=== PATIENT | female | born 1980 | race Caucasian/White ===

== ENCOUNTER 2017-03-06 14:45 | Observation (INO) | payer MEDICAID, SELFPAY ==
[2017-03-06 14:55] VITALS: BMI 30.9
[2017-03-06 15:40] VITALS: BP 139/87; PULSE 80; RESP 20; TEMP 37.4; O2SAT 100
--- NOTE | 2017-03-06 15:47 | PCM.HP.STD ---
Problem List (1) Heroin addiction Status: Chronic Comment: snorts only (2) High dependence on smoking Status: Chronic (3) Chronic back pain Status: Chronic (4) History of endometriosis Status: Chronic History of Present Illness Date of Admission: 03/06/17 Chief Complaint: Requesting medical stabilization for withdrawal from heroin The patient is a 36 year old F with past medical history of heroin addiction ?4 years (prior to that prescription narcotic use of her aunt's prescribed drugs for CA), smoker, chronic back pain and endometriosis who presents to [facility] requesting medical stabilization for opioid withdrawal. Was admitted to [facility] in December and failed suboxone OP because her friend told her it is OK to use sometimes while you are on Suboxone. Had been on Suboxone in the past but her fiance could not stop using and so she used also. He is supposed to come in to the hospital for [facility]. She has 3 children and they are now living with her aunt. Her plan is to get Vivit[place] at [place] and do an OP program. She is c/o nausea but has had no vomiting. She has not had diarrhea but is diaphoretic. Last snorted heroin 03/05 at 9 PM. Has used cocaine in the past but since being addicted to heroin she does not crave cocaine. Past Medical History Past Medical History (Chronic Problems): Chronic Problems Chronic back pain (Chronic) Heroin addiction (Chronic) snorts only High dependence on smoking (Chronic) History of endometriosis (Chronic) Allergies acetaminophen [From Darvocet-N] Allergy (Verified 02/13/15 22:37) Itching propoxyphene napsylate [From Darvocet-N] Allergy (Verified 02/13/15 22:37) Itching tramadol HCl [From Ultram] Allergy (Verified 02/13/15 22:37) Itching morphine Adverse Reaction (Verified 02/13/15 22:37) Nausea/Vom/Diarrhea Home Medications: Ambulatory Orders Medication Instructions Recorded Hydrocodone Bitart/Apap 5-325 1 - 2 tablet PO Q4H PRN PRN #20 09/19/14 [[place] 5/325] tablet Surgical History: hysterectomy - with BL oophorectomy for endometriosis Psychiatric History: 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 hx 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 Lives: Spouse/ Significant Other - also has 3 children Smoking Status: Heavy Smoker (>10/day) - 1 PPD Tobacco Use: Cigarettes Alcohol: Rare Drugs: Heroin - *Family History Paternal History Items: - - never knew her father Maternal History Items: Diabetes, Heart Disease, Hypertension Review of Systems Constitutional: Reports: Anorexia, Chills Eyes: Denies: Blurred vision, Redness HEENT: Denies: Head Aches, Sinus Congestion, Sinus Drainage Cardiovascular: Denies: Chest Pain, Palpitations Respiratory: Denies: Cough, Shortness of breath at rest, Sputum production Gastrointestinal: Reports: Abdominal Pain - crampy, Nausea. Denies: Diarrhea, Vomiting Genitourinary: Denies: Dysuria Gynecological: Denies: Vaginal discharge Musculoskeletal: Denies: Joint swelling Skin: Denies: Jaundice, Rash, Wounds Psychiatric: Denies: Anxiety, Depression, Homicidal Ideations, Suicidal Ideations Endocrine: Denies: Hx of Thyroiditis Hematologic/ Lymphatic: Denies: Hx of blood clot VTE Information - Inpt Only VTE Present on Admission: No VTE Mechan Device Prophylaxis: None VTE Pharm Prophylaxis ordered?: No Reason prophylaxis not ordered:: Treatment Not Indicated - Physical Exam General: Alert, Oriented x3, Cooperative, - - she has a very foul odor of old cigarettes about her and the room reeks. she is sweaty HEENT: Atraumatic, PERRLA, EOMI, Normocephalic Oral: Moist Mucosa, - - she is edentulous Neck: Supple, No JVD, Negative Carotid Bruits Lungs: Clear to auscultation, Normal air movement Cardiovascular: Regular rate, No murmurs Abdomen: Bowel Sounds Present, Soft, Non-Distended, Tender, - - No guarding Extremities: No edema, Capillary Refill Less than 3 Seconds Skin: No rashes, No breakdown Neurological: Cranial nerves II-XII grossly intact Weight: 180 lb Body Mass Index (BMI) 30.9 Assessment/Plan Impressions 1. Acute opioid withdrawal-early. Requesting medical stabilization for detox. 2. Heroin addiction-denies any IV use ever and also denies any history of hepatitis C. Has used cocaine in the past. 3. Obesity 4. Heavy nicotine dependence 5. Prior failed episodes of outpatient drug rehab -fianc? is currently a heroin addict as well Admit for medical stabilization for opiod withdrawal. She plans on once again trying OP drug rehab and hopes this time to take Vivitrol
--- NOTE | 2017-03-06 16:00 | HP.PCM_ITS ---
Problem List (1) Heroin addiction Status: Chronic Comment: snorts only (2) High dependence on smoking Status: Chronic (3) Chronic back pain Status: Chronic (4) History of endometriosis Status: Chronic History of Present Illness Date of Admission: 03/06/17 Chief Complaint: Requesting medical stabilization for withdrawal from heroin The patient is a 36 year old F with past medical history of heroin addiction ?4 years (prior to that prescription narcotic use of her aunt's prescribed drugs for [place]), smoker, chronic back pain and endometriosis who presents to [facility] requesting medical stabilization for opioid withdrawal. Was admitted to [facility] in December and failed suboxone OP because her friend told her it is OK to use sometimes while you are on Suboxone. Had been on Suboxone in the past but her fiance could not stop using and so she used also. He is supposed to come in to the hospital for [facility]. She has 3 children and they are now living with her aunt. Her plan is to get [place] at [place] and do an OP program. She is c/o nausea but has had no vomiting. She has not had diarrhea but is diaphoretic. Last snorted heroin 03/05 at 9 PM. Has used cocaine in the past but since being addicted to heroin she does not crave cocaine. Past Medical History Past Medical History (Chronic Problems): Chronic Problems Chronic back pain (Chronic) Heroin addiction (Chronic) snorts only High dependence on smoking (Chronic) History of endometriosis (Chronic) Allergies acetaminophen [From Darvocet-N] Allergy (Verified 02/13/15 22:37) Itching propoxyphene napsylate [From Darvocet-N] Allergy (Verified 02/13/15 22:37) Itching tramadol HCl [From Ultram] Allergy (Verified 02/13/15 22:37) Itching morphine Adverse Reaction (Verified 02/13/15 22:37) Nausea/Vom/Diarrhea Home Medications: Ambulatory Orders Medication Instructions Recorded Hydrocodone Bitart/Apap 5-325 1 - 2 tablet PO Q4H PRN PRN #20 09/19/14 [[place] 5/325] tablet Surgical History: hysterectomy - with BL oophorectomy for endometriosis Psychiatric History: 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 hx 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 Lives: Spouse/ Significant Other - also has 3 children Smoking Status: Heavy Smoker (>10/day) - 1 PPD Tobacco Use: Cigarettes Alcohol: Rare Drugs: Heroin - *Family History Paternal History Items: - - never knew her father Maternal History Items: Diabetes, Heart Disease, Hypertension Review of Systems Constitutional: Reports: Anorexia, Chills Eyes: Denies: Blurred vision, Redness HEENT: Denies: Head Aches, Sinus Congestion, Sinus Drainage Cardiovascular: Denies: Chest Pain, Palpitations Respiratory: Denies: Cough, Shortness of breath at rest, Sputum production Gastrointestinal: Reports: Abdominal Pain - crampy, Nausea. Denies: Diarrhea, Vomiting Genitourinary: Denies: Dysuria Gynecological: Denies: Vaginal discharge Musculoskeletal: Denies: Joint swelling Skin: Denies: Jaundice, Rash, Wounds Psychiatric: Denies: Anxiety, Depression, Homicidal Ideations, Suicidal Ideations Endocrine: Denies: Hx of Thyroiditis Hematologic/ Lymphatic: Denies: Hx of blood clot VTE Information - Inpt Only VTE Present on Admission: No VTE Mechan Device Prophylaxis: None VTE Pharm Prophylaxis ordered?: No Reason prophylaxis not ordered:: Treatment Not Indicated - Physical Exam General: Alert, Oriented x3, Cooperative, - - she has a very foul odor of old cigarettes about her and the room reeks. she is sweaty HEENT: Atraumatic, PERRLA, EOMI, Normocephalic Oral: Moist Mucosa, - - she is edentulous Neck: Supple, No JVD, Negative Carotid Bruits Lungs: Clear to auscultation, Normal air movement Cardiovascular: Regular rate, No murmurs Abdomen: Bowel Sounds Present, Soft, Non-Distended, Tender, - - No guarding Extremities: No edema, Capillary Refill Less than 3 Seconds Skin: No rashes, No breakdown Neurological: Cranial nerves II-XII grossly intact Weight: 180 lb Body Mass Index (BMI) 30.9 Assessment/Plan Impressions 1. Acute opioid withdrawal-early. Requesting medical stabilization for detox. 2. Heroin addiction-denies any IV use ever and also denies any history of hepatitis C. Has used cocaine in the past. 3. Obesity 4. Heavy nicotine dependence 5. Prior failed episodes of outpatient drug rehab -fianc? is currently a heroin addict as well Admit for medical stabilization for opiod withdrawal. She plans on once again trying OP drug rehab and hopes this time to take Vivitrol
[2017-03-06 16:09] VITALS: PULSE 83; RESP 20; TEMP 37.4
[2017-03-06] MEDS: Acetaminophen 325 MG Tablet 650 MG PO (16:24)
[2017-03-06] MEDS: cloNIDine HCl 0.1 MG Tablet 0.2 MG PO (16:24)
[2017-03-06] MEDS: Dicyclomine 10 MG Capsule 20 MG PO ×2 (16:25→22:31)
[2017-03-06] MEDS: Ondansetron ODT 4 MG Tablet PO (16:25)
[2017-03-06] MEDS: Buprenorphine HCl 2 MG TAB.SUBL SL (16:26)
[2017-03-06 16:29] LABS: Absolute Lymphocyte Count 1.84 X10^3/ul (0.83-4.51); Basophil# 0.02 X10^3/uL; Basophil% 0.3 % (0-1); Eosinophils% 1.3 % (0-5); Hematocrit 42.9 % (37-47); Hemoglobin 14.3 g/dl (12.0-15.0); Lymphocyte # 1.84 X10^3/ul (4.0); Lymphocyte % 24.7 % (19-41); Mean Corp Hgb Conc 33.3 g/gl (32-36); Mean Corpuscular Hgb 31.3 pg (27.0-32.0); Mean Corpuscular Volume 93.9 fL (81-99); Mean Platelet Vol. 9.5 fl (6.2-12.0); Monocyte% 6.7 % (0-10); Neutrophil # 4.97 X10^3/uL (2.7-7.7); Neutrophil % 66.6 % (47-70); Platelet Count 213 K/mm3 (150-450); RBC Distribution Width CV 12.9 % (11.6-14.6); RBC Distribution Width SD 43.2 fl (35.1-43.9); Red Blood Count 4.57 M/mm3 (4.2-5.4); White Blood Count 7.5 K/mm3 (4.4-11.0)
[2017-03-06 16:32] LABS: POSITIVE COUNT NO; POSITIVE DIFFERENTIAL NO; POSITIVE MORPHOLOGY NO
[2017-03-06 16:36] LABS: International Normalized Ratio 0.9; Prothrombin Time (Protime)PT. 11.7 SECONDS (11.7-14.9)
[2017-03-06 16:43] LABS: Alcohol, Blood (Medical)-Serum < 3.0 mg/dL
[2017-03-06 16:48] LABS: ALB/GLOB Ratio 0.9 RATIO (0.9-2.4); AST(SGOT) 11 U/L (15-37); Alanine Aminotransfer ALT/SGPT 24 U/L (12-78); Albumin, Serum 3.6 g/dL (3.4-5.0); Alkaline Phosphatase 104 U/L (45-117); Anion Gap 5 (5-15); BUN 6 mg/dL (7-18); BUN/Creat Ratio 10.4 RATIO (10-20); Calcium,Total 9.2 mg/dL (8.5-10.1); Chloride 102 mmol/L (98-107); Creatinine, Serum 0.58 mg/dL (0.55-1.02); EST Glomerular Filtration Rate 126 mL/min (>60); Est Glom Filt Rate - Afr Amer 152 mL/min (>60); Estimated Creatinine Clearance 115.79 ml/min; Globulin 3.9 g/dL (2.3-3.5); Glucose 98 mg/dL (70-110); Protein, Total 7.5 g/dL (6.4-8.2); Sodium Level 139 mmol/L (136-145)
[2017-03-06 16:59] LABS: Pregnancy, Serum, hCG Quali. NEGATIVE Negative (0-9 Nonpreg)
[2017-03-06] MEDS: Mag Hydrox/Al Hydrox/Simeth 30 ML UDC PO (18:07)
--- NOTE | 2017-03-06 18:54 | NURSING ---
c/o nausea. mylanta not effective and pt had emesis which was seen by this nurse. Emesis in trash can. Pt states Nausea started shortly after dinner. Also reports anxiety is high. Visteril po given.
[2017-03-06 19:45] VITALS: BP 115/86; PULSE 84; RESP 20; TEMP 36.9; O2SAT 100
[2017-03-06] MEDS: Ondansetron ODT 4 MG Tablet 8 MG PO (20:11)
[2017-03-06] MEDS: Ibuprofen 400 MG Tablet 800 MG PO (20:14)
[2017-03-06 20:17] VITALS: BP 115/86; PULSE 84; RESP 20; TEMP 36.9
--- NOTE | 2017-03-06 20:27 | NURSING ---
Patient restless in bed complaining of nausea, abdominal cramping and back pain. Patient medicated with zofran and motrin for these symptoms.
[2017-03-06] MEDS: traZODone 50 MG Tablet PO (22:31)
--- NOTE | 2017-03-06 22:37 | NURSING ---
patient still complaining of abdominal discomfort, bentyl given for abdominal pain.
[2017-03-07] VITALS (10 sets, daily range): BP systolic 111–129; BP diastolic 60–85; PULSE 70–89; RESP 16–18; TEMP 36.4–37.2; O2SAT 94–97
[2017-03-07] MEDS: Buprenorphine HCl 2 MG TAB.SUBL SL ×3 (00:41→15:29)
[2017-03-07] MEDS: Ibuprofen 400 MG Tablet 800 MG PO ×3 (04:47→22:10)
[2017-03-07] MEDS: Dicyclomine 10 MG Capsule 20 MG PO ×3 (04:53→22:10)
--- NOTE | 2017-03-07 07:25 | PCM.PN.HOSP ---
Subjective: Patient is a 36-year-old female who was admitted to the hospital due to acute opiate withdrawal. Subjective. Patient was seen and examined. Laying down in bed, comfortable, does not appear to be distressed now, still complains of mild aches all over, and off cold/hot. Tolerating oral intake well. Does look slightly anxious. Denies shortness of breath, no palpitations. No GI/ complaints. Objective. General: Patient is laying down in bed. Awake, alert, oriented ?3. HEENT: Atraumatic, Normocephalic. Clear conjunctiva. Oral mucosa is moist. Neck: No nodules noted, no asymmetry. PERRLA. Skin: Clean, dry. No new visible rashes. Lungs: clear to auscultation bilaterally. CVS: S1-S2 present, no murmurs appreciated, regular rate, good radial pulses. Abdomen: Soft, nontender, nondistended, bowel sounds present. No CVA tenderness. Extremities: No clubbing, No cyanosis. No visible deformities. No lower extremity edema. Psych/Mental Status: Normal Affect, Appropriate Neuro: No new focal neurological findings. Assessment and plan. Acute opiate withdrawal. Continue withdrawal protocol with Buprenex taper. Polysubstance abuse. Using opiates, cocaine, nicotine. Counseled on cessation. Plans to continue rehab as outpatient, [facility] program will assist with outpatient arrangements. DVT prophylaxis-encourage ambulation and knee/ankle exercises. Dragon Dictation. Vitals/I&O's: Vital Signs Temp Pulse Resp BP Pulse Ox 37.0 C 84 18 121/85 95 03/07/17 04:45 03/07/17 04:45 03/07/17 04:45 03/07/17 04:45 03/07/17 04:45 Oxygen Delivery Method Room Air Weight: 81.647 kg Body Mass Index (BMI) 30.9 Intake and Output for Last 24 Hours 03/05/17 03/06/17 03/07/17 23:59 23:59 23:59 Intake Total 240 75 Output Total 100 25 Balance 140 50 Laboratory Results 03/06/17 16:05: WBC 7.5, RBC 4.57, Hgb 14.3, Hct 42.9, MCV 93.9, MCH 31.3, MCHC 33.3, RDW 12.9, RDW Differential 43.2, Plt Count 213, MPV 9.5, Immature Gran % (Auto) 0.400, Neut % (Auto) 66.6, Lymph % (Auto) 24.7, [place] % (Auto) 6.7, Eos % (Auto) 1.3, Baso % (Auto) 0.3, Absolute Neuts (auto) 5.0, Absolute Lymphs (auto) 1.84, Total Counted Not Reportable 03/06/17 16:05: PT 11.7, INR 0.9 03/06/17 16:05: Sodium 139, Potassium 4.0, Chloride 102, Carbon Dioxide 32.0, Anion Gap 5, BUN 6 L, Creatinine 0.58, Estim Creat Clear Calc 115.79, Est GFR (MDRD) Af Amer 152, Est GFR (MDRD) Non-Af 126, BUN/Creatinine Ratio 10.4, Glucose 98, Calcium 9.2, Total Bilirubin 0.20, AST 11 L, ALT 24, Alkaline Phosphatase 104, Total Protein 7.5, Albumin 3.6, Globulin 3.9 H, Albumin/Globulin Ratio 0.9 03/06/17 16:05: Ethyl Alcohol < 3.0 03/06/17 16:05: Serum , Qual NEGATIVE Current Medications Acetaminophen (Tylenol) 650 mg PO Q4H PRN PRN PRN Reason: Temp>99.1F Last Admin: 03/06/17 16:24 Dose: 650 mg Al Hydroxide/Mg Hydroxide (Mylanta Ii) 30 ml PO Q6H PRN PRN PRN Reason: dyspesia Last Admin: 03/06/17 18:07 Dose: 30 ml Bisacodyl (Dulcolax) 10 mg RECTAL DAILY PRN PRN Reason: Constipation Buprenorphine HCl (Buprenorphine Hcl) 4 mg SL Q8H [facility] PRN Reason: Taper Stop: 03/09/17 19:59 Last Admin: 03/07/17 00:41 Dose: 4 mg Clonidine (Catapres) 0.1 mg PO Q2H PRN PRN Reason: Hot/Cold Sweats or Anxiety Dicyclomine HCl (Bentyl) 20 mg PO Q6H PRN PRN PRN Reason: Abdomnial Discomfort Last Admin: 03/07/17 04:53 Dose: 20 mg Folic Acid (Folic Acid) 1 mg PO DAILY@0800 [facility] Hydroxyzine Pamoate (Vistaril) 50 mg PO Q6H PRN PRN PRN Reason: Mild Anxiety (score 1/3) Last Admin: 03/07/17 04:47 Dose: 50 mg Ibuprofen (Motrin) 800 mg PO Q8H PRN PRN PRN Reason: Mild-Moderate Pain (1-5/10) Last Admin: 03/07/17 04:47 Dose: 800 mg Loperamide HCl (Imodium) 2 - 4 mg PO UD PRN PRN Reason: LOOSE STOOLS Methocarbamol (Methocarbamol) 750 mg PO 4X/DAY PRN PRN Reason: Muscle Aches Multivitamins/Minerals (Multivitamin With Minerals) [facility] Nicotine (Nicoderm Cq (Pbkc)) 21 mg TRANSDERM. DAILY [facility] Last Admin: 03/06/17 18:08 Dose: 21 mg Ondansetron HCl (Zofran Odt) 8 mg PO Q6H PRN PRN PRN Reason: NAUSEA Last Admin: 03/06/17 20:11 Dose: 8 mg Quetiapine Fumarate (Seroquel) 25 mg PO Q6H PRN PRN PRN Reason: Moderate Anxiety (score 2/3) Senna (Senokot) 1 tablet PO QHS PRN PRN Reason: Constipation Sodium Chloride () 5 - 30 ml IV UD PRN PRN Reason: SALINE FLUSH Thiamine HCl (Vitamin B1) 100 mg PO DAILYCM [facility] Trazodone HCl (Desyrel) 50 mg PO QHS [facility] Last Admin: 03/06/17 22:31 Dose: 50 mg
[2017-03-07] MEDS: Folic Acid 1 MG Tablet PO (08:01)
[2017-03-07] MEDS: Multivitamins,Ther W-Minerals Tablet 1 TABLET PO (08:02)
[2017-03-07] MEDS: Thiamine Hydrochloride 100 MG Tablet PO (08:02)
[2017-03-07 12:30] LABS: Amphetamine Urine VISTA NEGATIVE (<1000 ng/mL); Barbiturate Urine VISTA NEGATIVE (< 200 ng/mL); Benzodiazepine Urine VISTA NEGATIVE (< 200 ng/mL); Cocaine Urine VISTA NEGATIVE (< 300 ng/mL); Ecstacy Urine VISTA NEGATIVE (< 500 ng/mL); Methadone Urine VISTA NEGATIVE (< 300 ng/mL); PCP Urine VISTA NEGATIVE (< 25 ng/mL); THC Urine VISTA NEGATIVE (< 50 ng/mL); Vista UDS pH Range 7
[2017-03-07] MEDS: QUEtiapine 25 MG Tablet PO ×2 (12:53→22:10)
[2017-03-07] MEDS: cloNIDine HCl 0.1 MG Tablet PO ×2 (12:54→15:34)
[2017-03-07] MEDS: Ondansetron ODT 4 MG Tablet 8 MG PO ×2 (12:54→22:10)
[2017-03-07] MEDS: traZODone 50 MG Tablet PO (22:05)
[2017-03-07] MEDS: Methocarbamol 750 MG Tablet PO (22:12)
[2017-03-08] MEDS: Buprenorphine HCl 2 MG TAB.SUBL SL ×3 (00:04→20:20)
[2017-03-08 00:06] VITALS: BP 120/79; PULSE 69; RESP 16; TEMP 36.3
[2017-03-08 06:26] VITALS: BP 113/84; PULSE 73; RESP 16; TEMP 36.1
[2017-03-08] MEDS: Methocarbamol 750 MG Tablet PO ×3 (06:33→20:19)
[2017-03-08] MEDS: Ibuprofen 400 MG Tablet 800 MG PO ×2 (06:33→15:56)
[2017-03-08] MEDS: QUEtiapine 25 MG Tablet PO ×3 (06:33→22:38)
--- NOTE | 2017-03-08 07:38 | PCM.PN.HOSP ---
Subjective: Patient is a 36-year-old female who was admitted to the hospital due to acute opiate withdrawal. Subjective. Patient was seen and examined. Laying down in bed, comfortable, does not appear to be distressed now, still complains of mild aches all over, chronic back pain, no fever chills now. Tolerating oral intake well, although states that appetite is decreased. Denies shortness of breath, no palpitations. No GI/ complaints. Objective. General: Patient is laying down in bed. Awake, alert, oriented ?3. HEENT: Atraumatic, Normocephalic. Clear conjunctiva. Oral mucosa is moist. Neck: No nodules noted, no asymmetry. PERRLA. Skin: Clean, dry. No new visible rashes. Lungs: clear to auscultation bilaterally. CVS: S1-S2 present, no murmurs appreciated, regular rate, good radial pulses. Abdomen: Soft, nontender, nondistended, bowel sounds present. No CVA tenderness. Extremities: No clubbing, No cyanosis. No visible deformities. No lower extremity edema. Psych/Mental Status: Normal Affect, Appropriate Neuro: No new focal neurological findings. Assessment and plan. Acute opiate withdrawal. Continue withdrawal protocol with Buprenex taper. Polysubstance abuse. Using opiates, cocaine, nicotine. Counseled on cessation. Plans to continue rehab as outpatient, [facility] program will assist with outpatient arrangements. DVT prophylaxis-encourage ambulation and knee/ankle exercises. Dragon Dictation. Vitals/I&O's: Vital Signs Temp Pulse Resp BP Pulse Ox 36.1 C 73 16 113/84 97 03/08/17 06:26 03/08/17 06:26 03/08/17 06:26 03/08/17 06:26 03/07/17 22:02 Oxygen Delivery Method Room Air Weight: 81.647 kg Body Mass Index (BMI) 30.9 Intake and Output for Last 24 Hours 03/06/17 03/07/17 03/08/17 23:59 23:59 23:59 Intake Total 240 575 880 Output Total 100 25 Balance 140 550 880 Laboratory Results 03/06/17 12:15: Urine Opiates Screen NEGATIVE, Urine Methadone Screen NEGATIVE, Ur Barbiturates Screen NEGATIVE, Ur Phencyclidine Scrn NEGATIVE, Ur Amphetamines Screen NEGATIVE, U Methamphetamin-MDMA NEGATIVE, U Benzodiazepines Scrn NEGATIVE, Urine Cocaine Screen NEGATIVE, U Cannabinoids Screen NEGATIVE, Ur Drug Screen Comment Current Medications Acetaminophen (Tylenol) 650 mg PO Q4H PRN PRN PRN Reason: Temp>99.1F Last Admin: 03/06/17 16:24 Dose: 650 mg Al Hydroxide/Mg Hydroxide (Mylanta Ii) 30 ml PO Q6H PRN PRN PRN Reason: dyspesia Last Admin: 03/06/17 18:07 Dose: 30 ml Bisacodyl (Dulcolax) 10 mg RECTAL DAILY PRN PRN Reason: Constipation Buprenorphine HCl (Buprenorphine Hcl) 2 mg SL Q8H [facility] PRN Reason: Taper Stop: 03/09/17 19:59 Last Admin: 03/08/17 00:04 Dose: 2 mg Clonidine (Catapres) 0.1 mg PO Q2H PRN PRN Reason: Hot/Cold Sweats or Anxiety Last Admin: 03/07/17 15:34 Dose: 0.1 mg Dicyclomine HCl (Bentyl) 20 mg PO Q6H PRN PRN PRN Reason: Abdomnial Discomfort Last Admin: 03/07/17 22:10 Dose: 20 mg Folic Acid (Folic Acid) 1 mg PO DAILY@0800 [facility] Last Admin: 03/07/17 08:01 Dose: 1 mg Hydroxyzine Pamoate (Vistaril) 50 mg PO Q6H PRN PRN PRN Reason: Mild Anxiety (score 1/3) Last Admin: 03/08/17 00:09 Dose: 50 mg Ibuprofen (Motrin) 800 mg PO Q8H PRN PRN PRN Reason: Mild-Moderate Pain (1-5/10) Last Admin: 03/08/17 06:33 Dose: 800 mg Loperamide HCl (Imodium) 2 - 4 mg PO UD PRN PRN Reason: LOOSE STOOLS Methocarbamol (Methocarbamol) 750 mg PO 4X/DAY PRN PRN Reason: Muscle Aches Last Admin: 03/08/17 06:33 Dose: 750 mg Multivitamins/Minerals ([facility]amin [facility] Minerals) [facility] Last Admin: 03/07/17 08:02 Dose: 1 tablet Nicotine (Nicoderm Cq (Pbkc)) 21 mg TRANSDERM. DAILY [facility] Last Admin: 03/07/17 08:01 Dose: 21 mg Ondansetron HCl (Zofran Odt) 8 mg PO Q6H PRN PRN PRN Reason: NAUSEA Last Admin: 03/07/17 22:10 Dose: 8 mg Quetiapine Fumarate (Seroquel) 25 mg PO Q6H PRN PRN PRN Reason: Moderate Anxiety (score 2/3) Last Admin: 03/08/17 06:33 Dose: 25 mg Senna (Senokot) 1 tablet PO QHS PRN PRN Reason: Constipation Sodium Chloride () 5 - 30 ml IV UD PRN PRN Reason: SALINE FLUSH Thiamine HCl (Vitamin B1) 100 mg PO DAILYCM [facility] Last Admin: 03/07/17 08:02 Dose: 100 mg Trazodone HCl (Desyrel) 50 mg PO QHS [facility] Last Admin: 03/07/17 22:05 Dose: 50 mg
[2017-03-08] MEDS: Multivitamins,Ther W-Minerals Tablet 1 TABLET PO (08:10)
[2017-03-08] MEDS: Thiamine Hydrochloride 100 MG Tablet PO (08:10)
[2017-03-08] MEDS: Folic Acid 1 MG Tablet PO (08:10)
[2017-03-08 08:17] VITALS: BP 128/77; PULSE 75; RESP 20; TEMP 36.4; O2SAT 95
--- NOTE | 2017-03-08 10:55 | NURSING ---
Pt. room smelled of stale smoke at beginning of shift and shortly after- this RN entered room and room smelled as if someone had recently smoked in room. This RN noticed pt's book bag next to bed- pt reminded no smoking in hospital. Griselda Rodgers notified of same.
--- NOTE | 2017-03-08 12:02 | NURSING ---
pt called this RN on work cell phone and c/o anxiety and muscle aches- requesting anxiety med and pain med. Upon entering room pt restless and sitting up in bed- slightly shaking. Pt c/o muscle aches 8/10 pain. PRN meds (vistaril and methocarbamol) given at this time.
[2017-03-08 13:30] VITALS: BP 128/78; PULSE 90; RESP 18; TEMP 36.6
--- NOTE | 2017-03-08 14:44 | CHAPLAIN ---
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; pt discloses that she really wants to make a change in life and is tired of getting up in the morning and thinking about how she can get money to get drugs; pt said that she has some support but 'not really'; pt states that her boyfriend is coming through [facility] tomorrow and she is hopeful that they can both get clean together; pt said she does not think about God and said I've lost a lot of people in my life; patient however was welcoming of a prayer; pt was encouraged by this chief hydroelectric station operator to continue on pursuit of sobriety and to consider what future might look that; pt said that she does not even know who she is and has some anxiety about continuing forward; we talked about changes and finding hope for a good new life
--- NOTE | 2017-03-08 15:11 | NURSING ---
This RN entered patient's room for 1400 rounds/ vitals. Room smells strongly of smoke- this RN notified patient that smoke can be smelled strongly in patient's room. Patient states that It isn't me- I don't even have any cigarettes here. This RN reminded patient again that if she would get caught smoking in room- she would be d/c'ed.
[2017-03-08 18:00] VITALS: BP 125/72; PULSE 88; RESP 18; TEMP 36.6
--- NOTE | 2017-03-08 18:20 | NURSING ---
pt c/o back pain 04/13 at 1556- prn motrin given. Pt exhibited facial grimacing. AT this time pt c/o anxiety- requesting meds. Pt sitting up in bed- restless- prn vistaril given.
[2017-03-08 20:08] VITALS: BP 132/82; PULSE 79; RESP 14; TEMP 36.9
[2017-03-08] MEDS: cloNIDine HCl 0.1 MG Tablet PO (20:19)
[2017-03-08] MEDS: traZODone 50 MG Tablet PO (22:38)
[2017-03-09 05:02] VITALS: BP 109/74; PULSE 76; RESP 16; TEMP 36.7
[2017-03-09] MEDS: Methocarbamol 750 MG Tablet PO (05:07)
[2017-03-09] MEDS: Ibuprofen 400 MG Tablet 800 MG PO (05:08)
[2017-03-09] MEDS: Buprenorphine HCl 2 MG TAB.SUBL SL (08:00)
[2017-03-09] MEDS: Folic Acid 1 MG Tablet PO (08:01)
[2017-03-09] MEDS: Thiamine Hydrochloride 100 MG Tablet PO (08:01)
[2017-03-09] MEDS: Multivitamins,Ther W-Minerals Tablet 1 TABLET PO (08:01)
[2017-03-09 08:18] VITALS: BP 125/79; PULSE 88; RESP 20; TEMP 36.7
--- NOTE | 2017-03-09 10:13 | NURSING ---
PT LEAVING WITH SO THEY CAN GO TO ANOTHER APPT NECESSARY FOR REHAB-DR QUISPE NOT ON UNIT YET AND PT HAS BEEN TOLD BY [facility] THAT SHE IS DONE WITH HER HOSPITAL STAY-THIS NURSE TOLD HER WE CAN NOT HOLD HER AGAINST HER WILL-SHE SAID WE HAVE ACCURATE PHONE # FOR HER IF THERE ARE FURTHER INSTRUCTIONS FOR HER-DR QUISPE MADE AWARE
--- NOTE | 2017-03-09 10:16 | PCM.DC ---
You will use the following diet at home:: No restrictions Your food should be the consistency of: Regular Discharge Activity: Return to Normal Activity, May Not Drive Call your doctor if you observe: Fever of 101 or Higher, Coldness, Increased Pain, Numbness or Tingling, Change in Color, Inability to urinate, Inability to have a bowel movement, Using more than one pad per hour, Shortness of breath, Dizziness, Fainting spells, Swelling in the ankles, Chest pain, Prolonged hiccoughing, Increased palpitations (irregular heartbeat), Calf discomfort, Uncontrolled pain Allergies/Adverse Reactions: Allergies acetaminophen [From Darvocet-N] Allergy (Verified 03/06/17 15:48) Itching propoxyphene napsylate [From Darvocet-N] Allergy (Verified 03/06/17 15:48) Itching tramadol HCl [From Ultram] Allergy (Verified 03/06/17 15:48) Itching morphine Adverse Reaction (Verified 03/06/17 15:48) Nausea/Vom/Diarrhea Primary Care Physician: Care Physician,No Primary [Primary Care Provider] - Please follow up with your Primary Care Physician in: 2 weeks Please Follow Up With: drug rehab When: [facility] upon discharge from the hospital
--- NOTE | 2017-03-09 10:17 | DS.PCM_ITS ---
Discharge Date and Diagnosis Date of Admission: 03/06/17 Date of Discharge: 03/09/17 - Primary Discharge Diagnosis Acute opiate withdrawal Polysubstance abuse - Secondary Discharge Diagnosis Chronic Problems Chronic back pain (Chronic) Heroin addiction (Chronic) snorts only High dependence on smoking (Chronic) History of endometriosis (Chronic) Hospital Course and Treatment Summary of Care Provided: Patient is a 36-year-old female who was admitted to the hospital due to acute opiate withdrawal. Hospital course: * Acute opiate withdrawal. Continue withdrawal protocol with Buprenex taper. * Polysubstance abuse. Using opiates, cocaine, nicotine. Counseled on cessation. Plans to continue rehab as outpatient, [facility] will assist with outpatient arrangements. * DVT prophylaxis-encourage ambulation and knee/ankle exercises. I did came to evaluate patient around 10 AM, although patient was already gone. Per report from RN she had scheduled appointment for 1015 in a.m. (!), That was scheduled by [facility], and she did not want to miss this appointment and left prior was able to evaluate patient. Per report from RN she symptoms of acute opiate withdrawal resolved. Discharge Activity: Return to Normal Activity, May Not Drive Call your doctor if you observe: Fever of 101 or Higher, Coldness, Increased Pain, Numbness or Tingling, Change in Color, Inability to urinate, Inability to have a bowel movement, Using more than one pad per hour, Shortness of breath, Dizziness, Fainting spells, Swelling in the ankles, Chest pain, Prolonged hiccoughing, Increased palpitations (irregular heartbeat), Calf discomfort, Uncontrolled pain Primary Care Physician: Care Physician,No Primary [Primary Care Provider] - Please follow up with your Primary Care Physician in: 2 weeks Please Follow Up With: drug rehab When: [facility] upon discharge from the hospital Disposition: Home Minutes spent on discharge:: 20 Patient Condition:: Good Meaningful Use Info Meaningful Use Diagnoses (Choose all that apply): None applicable
== END 2017-03-09 10:11 | disposition home or self-care (01) | DRG 773 ==
LOC: MS3 05-28 15:40
PROVIDERS: Admitting Provider Internal Medicine; Visit Provider Internal Medicine
DX: F11.23 Opioid dependence with withdrawal (principal); F17.210 Nicotine dependence, cigarettes, uncomplicated; M54.9 Dorsalgia, unspecified; G89.29 Other chronic pain; E66.9 Obesity, unspecified; Z68.30 Body mass index [BMI] 30.0-30.9, adult; F14.10 Cocaine abuse, uncomplicated; Z90.710 Acquired absence of both cervix and uterus; Z90.722 Acquired absence of ovaries, bilateral; Z87.42 Personal history of other diseases of the female genital tract
CPT/HCPCS: 80053; 80307; 80320; 84703; 85025; 85610; 99218; G0378; G0379; G0480

== ENCOUNTER 2020-02-12 08:34 | Emergency (ER) | payer SELFPAY ==
[2020-02-12 08:35] VITALS: BP 143/93; PULSE 113; RESP 18; TEMP 36.4; O2SAT 97; BMI 34.3
--- NOTE | 2020-02-12 09:07 | ED.VIS.GI ---
History of Present Illness Chief Complaint: Abd Pain Informant: Patient - Abdominal Pain/Flank Pain Onset: Month(s) - multiple Context: Sudden Onset - when occurs Timing: Intermittent, Lasts - from hrs to several days Quality: Cramping Location: Diffuse - either periumbilical or lower abd pain, nonlateralizing Current Severity: Moderate Maximum Severity: Severe Worsened by: Food - within 30 min of eating most things Relieved by: Nothing - hasn't tried anything - Nausea/Vomiting/Emesis GI Symptom: Negative for: Nausea, Vomiting - Diarrhea/Melena/Hematochezia GI Symptom: Diarrhea - chronic; when has BM, is loose. often goes 2-4 days between BMs for years.. Negative for: Melena, Hematochezia Stool Quality: Loose. Negative for: Watery, Mucous, Black, Maroon, SERINA per rectum Associated Symptoms: Negative for: Dysuria, Frequency, Hematuria, Urgency Narrative: This patient states she does not have a doctor or insurance and presents for this abdominal pain for which she has not seen a physician yet. It has been present for months, episodically. She had an episode yesterday and someone told her to go to the ER. She states the discomfort continues into today, but not as bad as it was yesterday. She states yesterday they were making sloppy Alejandro's, she had a bun with barely any of the sauce on it, and within 15 minutes she was having significant periumbilical abdominal pain. She has never had any testing for this. She had a hysterectomy in the past but no other abdominal surgeries. No radiation into her back or chest. No mucus, blood, melena. - Past Medical History (1) Chronic back pain Status: Chronic (2) Heroin addiction Status: Chronic Comment: snorts only (3) High dependence on smoking Status: Chronic (4) History of endometriosis Status: Resolved Past Medical History - Allergies and Home Meds Allergies/Adverse Reactions: Allergies acetaminophen [From Darvocet-N] Allergy (Verified 02/12/20 08:35) Itching propoxyphene napsylate [From Darvocet-N] Allergy (Verified 02/12/20 08:35) Itching tramadol HCl [From Ultram] Allergy (Verified 02/12/20 08:35) Itching morphine Adverse Reaction (Verified 02/12/20 08:35) Nausea/Vom/Diarrhea Primary Care Physician: Care Physician,No Primary [Primary Care Provider] - Surgical History: hysterectomy - with BL oophorectomy for endometriosis Smoking Status: Heavy Smoker (>10/day) - Family History Paternal Family History: Reports: - - never knew her father Maternal Family History: Reports: Diabetes, Heart Disease, Hypertension Review of Systems General: Denies: Chills, Fever, Sweats Eyes: Denies: Visual changes - bilaterally, Diplopia ENT: Denies: Rhinorrhea, Sore throat Cardiovascular: Denies: Chest pain, Palpitations Respiratory: Denies: Dyspnea, Cough, Dyspnea on exertion Gastrointestinal: Reports: Abdominal pain, Diarrhea, Constipation - According the patient, when she does not have a bowel movement for 5 days. Denies: Nausea, Vomiting, Melena, Hematochezia Genitourinary: Denies: Dysuria, Hematuria, Frequency Musculoskeletal: Denies: Neck pain, Swelling, Extremity Pain Skin: Denies: Rash, Wounds Neurological: Denies: Headache, Weakness, Numbness Physical Exam Vital Signs/Narrative: Vital Signs Temp Pulse Resp BP Pulse Ox 02/12/20 08:35 97.5 F L 113 H 18 143/93 H 97 Inital Vital Signs reviewed: Yes General: Well nourished, Well developed, No Acute Distress Head: Normocephalic, Atraumatic Eyes: Perrl, EOMI ENT: Moist mucous membranes, No rhinorrhea Neck: Supple, Nontender Cardiovascular: Regular rate, Regular rhythm, No murmurs Respiratory: No distress, CTA bilaterally, Chest nontender Abdomen: Soft, Nondistended, Normal bowel sounds, Tender - Infraumbilical only. No other areas of abdominal tenderness.. Negative for: Guarding, Rebound tenderness, Pulsatile mass, Balderrama's sign Back: Nontender, Normal Inspection. Negative for: CVA tenderness Extremities: Nontender, No edema Skin: Normal color, No rash, No Trauma Neurological: Alert, Oriented x3, Cranial nerves II-XII grossly intact, Normal Strength, Normal Sensation, Normal Gait Psychological: Normal affect, Normal Mood Diagnostic/Tx/Re-eval - Medical Decision Making Patient states something is wrong here. As I discussed with the patient, I do not disagree. However, I advised her that I do not feel that there is anything life-threatening, which she is also in agreement with. Since she does not have insurance, since testing in the ER is less likely to give her a diagnosis for this, she prefers not to have any testing. I do not think that is unreasonable at this time, and in context I have discussed with her the possibility that CT could give clues but would unlikely give an answer. I do not think she has diverticulitis or appendicitis. Her tenderness, pain, symptoms are inconsistent with biliary colic. Differential includes peptic ulcer disease, celiac disease, inflammatory bowel diseases, irritable bowel syndrome, and other food intolerances. We discussed all this, including the fact that the next best test to giving her an answer would be scopes. She needs to follow-up with a primary care doctor first, however and then she may be referred from there if needed. At this time I think it is reasonable to give her either H2 roula or PPI, Bentyl, and a GI cocktail, and she will be given prescriptions. She asked for a work note as well. ED Disposition - Plan for ED Patient: Disposition: Home or Assisted Living Diagnosis: Intermittent abdominal pain Instructions: ED PEPTIC ULCER vs GASTRITIS, Celiac Disease, Gluten-Free Diet for Celiac Disease Prescriptions: Dicyclomine HCl [Bentyl] 20 mg PO . Q4-6H PRN #20 cap PRN Reason: abdominal pain Transmission Status: Pending to [facility] #[id number] Omeprazole 1 cap PO DAILY 30 Days #30 capsule.dr Transmission Status: Pending to [facility] #[id number] Referrals: Antwon Roman MD [STAFF PHYSICIAN] - (call for appt)
[2020-02-12] MEDS: Dicyclomine 10 MG Capsule 20 MG PO (10:02)
[2020-02-12] MEDS: Pantoprazole Sodium 40 MG Tablet PO (10:02)
[2020-02-12] MEDS: Mag Hydrox/Al Hydrox/Simeth 30 ML UDC PO (10:03)
== END 2020-02-12 10:10 | disposition home or self-care (01) ==
LOC: ED 09:57
PROVIDERS: Emergency Provider Emergency Medicine
DX: R10.9 Unspecified abdominal pain (principal); M54.9 Dorsalgia, unspecified; G89.29 Other chronic pain; F11.20 Opioid dependence, uncomplicated; F17.210 Nicotine dependence, cigarettes, uncomplicated; Z82.49 Family history of ischemic heart disease and other diseases of the circulatory system; Z90.710 Acquired absence of both cervix and uterus
CPT/HCPCS: 99283; A4216